=== PATIENT | male | born 1955 | race Caucasian/White ===

== ENCOUNTER → 2017-03-17 | Outpatient (CLI) | payer MEDICARE | LOC: EMI 10:28 | DX: M54.16 Radiculopathy, lumbar region (principal); M51.37 Other intervertebral disc degeneration, lumbosacral region | CPT/HCPCS: 72148 ==

== ENCOUNTER 2021-03-02 14:57 | Inpatient (IN) | payer MEDICARE, OTHER ==
[~2021-03-02] VITALS: Ht 172.7 cm; Wt 136.1 kg
[2021-03-02 16:58] LABS: HEMOGLOBIN 16.3 gm/dl (14.0-17.5); RED BLOOD COUNT 5.33 M/UL (4.20-5.50); WHITE BLOOD COUNT 21.6 K/UL (4.5-11.0)
[2021-03-02 17:23] LABS: BUN/CREATININE RATIO 12 (0-10)
[2021-03-03] MEDS ORDERED: HYDROCHLOROTHIA25 MG PO ×2 (04:09→09:10)
[2021-03-03] MEDS ORDERED: TRESIBA FL100 UNIT/1 SQ (04:10)
[2021-03-03] MEDS ORDERED: GLIPIZIDE10 MG PO (04:11)
[2021-03-03 04:55] LABS: HEMOGLOBIN 15.1 gm/dl (14.0-17.5)
[2021-03-03 05:16] LABS: BUN/CREATININE RATIO 13 (0-10)
[2021-03-03] MEDS ORDERED: TOPROL XL50 MG PO (09:11)
[2021-03-03] MEDS ORDERED: NORVASC10 MG PO (09:17)
[2021-03-03] MEDS ORDERED: LIPITOR20 MG PO (09:18)
[2021-03-03] MEDS ORDERED: GLIPIZIDE5 MG PO (09:18)
[2021-03-03] MEDS ORDERED: OMEPRAZOLE40 MG PO (09:18)
[2021-03-03] MEDS ORDERED: MOBIC15 MG PO (09:19)
[2021-03-03] MEDS ORDERED: ASPIRIN EC81 MG PO (09:19)
[2021-03-03] MEDS ORDERED: COZAAR100 MG PO (09:19)
[2021-03-03] MEDS ORDERED: TRESIBA FLEXTOUCH SC (09:25)
[2021-03-04 03:17] LABS: WHITE BLOOD COUNT 15.8 K/UL (4.5-11.0)
[2021-03-04 03:20] LABS: HEMOGLOBIN 12.7 gm/dl (14.0-17.5); RED BLOOD COUNT 4.37 M/UL (4.20-5.50)
[2021-03-05 03:29] LABS: HEMOGLOBIN 12.7 gm/dl (14.0-17.5); RED BLOOD COUNT 4.25 M/UL (4.20-5.50); WHITE BLOOD COUNT 12.6 K/UL (4.5-11.0)
[2021-03-06 03:54] LABS: HEMOGLOBIN 12.6 gm/dl (14.0-17.5); RED BLOOD COUNT 4.24 M/UL (4.20-5.50)
[2021-03-06 04:31] LABS: BUN/CREATININE RATIO 17 (0-10)
[2021-03-06] MEDS ORDERED: KEFLEX CAP 250250 MG PO (12:34)
== END 2021-03-06 14:31 | disposition home or self-care (01) | DRG 418 ==
LOC: ER1 14:57 → CDU 20:08 → M/S 20:08
PROVIDERS: Internal Medicine; Physician Assistant; Surgery; ADMIT Internal Medicine
PROC: 0FT44ZZ Resection of Gallbladder, Percutaneous Endoscopic Approach (ICD-10-PCS; principal; 2021-03-03 15:28)
DX: K81.0 Acute cholecystitis (principal); N17.9 Acute kidney failure, unspecified; Z68.42 Body mass index [BMI] 45.0-49.9, adult; K82.A1 Gangrene of gallbladder in cholecystitis; E11.9 Type 2 diabetes mellitus without complications; Z20.822 Contact with and (suspected) exposure to COVID-19; R26.9 Unspecified abnormalities of gait and mobility; E78.5 Hyperlipidemia, unspecified; I12.9 Hypertensive chronic kidney disease with stage 1 through stage 4 chronic kidney disease, or unspecified chronic kidney disease; N18.30 Chronic kidney disease, stage 3 unspecified; E66.01 Morbid (severe) obesity due to excess calories; E86.0 Dehydration; Z86.73 Personal history of transient ischemic attack (TIA), and cerebral infarction without residual deficits; Z79.4 Long term (current) use of insulin; Z79.82 Long term (current) use of aspirin
CPT/HCPCS: 36415; 71045; 80048; 80053; 80061; 81001; 82150; 82248; 82550; 82553; 82962; 83036; 83605; 83690; 83735; 83874; 84100; 84484; 85025; 86140; 87040; 87086; 93005; 96374; 96375; 99285; C9113; J0690; J0696; J1100; J1650; J1885; J2001; J2250; J2270; J2405; J2704; J2710; J3010; J3480; J7030; J7120; Q9967; U0002